=== PATIENT | female | born 1990 | race Caucasian/White ===

== ENCOUNTER 2018-09-10 12:39 | Emergency (ER) | payer OTHER ==
[~2018-09-10] VITALS: Wt 88.0 kg
[2018-09-10] MEDS ORDERED: OXYCODONE/ACETAMINOPHEN (5/325) TAB PO ONE (13:30)
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
[2018-09-10] MEDS ORDERED: SOD CHLORIDE 0.9% 1,000 ML IV STA (14:27)
[2018-09-10] MEDS ORDERED: SOD CHLORIDE 0.9% 100 ML ONE (15:05)
[2018-09-10] MEDS ORDERED: IOHEXOL 300MG/ML 150 ML BTL ONE (15:05)
[2018-09-10] MEDS ORDERED: IBUP-1542 PO (16:08)
[2018-09-10] MEDS ORDERED: HYDR-4011 PO (16:08)
[2018-09-10 16:26] VITALS: BP 113/64; PULSE 63; RESP 20
== END 2018-09-10 16:26 | disposition home or self-care (01) ==
LOC: FTE 12:39
DX: S39.91XA Unspecified injury of abdomen, initial encounter (principal); S49.92XA Unspecified injury of left shoulder and upper arm, initial encounter; V49.49XA Driver injured in collision with other motor vehicles in traffic accident, initial encounter
CPT/HCPCS: 73090; 73110; 74177; 80053; 81001; 81025; 85025; J7030; Q9967; Z7502; Z7610; 81003

== ENCOUNTER 2018-11-30 01:10 | Emergency (ER) | payer OTHER ==
[~2018-11-30] VITALS: Ht 167.6 cm; Wt 81.9 kg
[~2018-11-30 01:10] MED LIST: HYDR-4011 PO; IBUP-1542 PO; LORA1TAB PO; MECL12.574 PO; ONDA8TAB14 PO
[2018-11-30 01:15] VITALS: Ht 167.6 cm; Wt 81.9 kg
[2018-11-30] MEDS ORDERED: ONDANSETRON (ODT) 4 MG TAB ODT STA (02:32)
[2018-11-30] MEDS ORDERED: MECLIZINE 12.5 MG TAB PO ONE (03:00)
[2018-11-30 04:58] VITALS: BP 129/81; PULSE 60; RESP 18
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
== END 2018-11-30 04:59 | disposition home or self-care (01) ==
LOC: FTE 01:10
DX: F41.9 Anxiety disorder, unspecified (principal); R00.1 Bradycardia, unspecified; F17.210 Nicotine dependence, cigarettes, uncomplicated; R11.0 Nausea
CPT/HCPCS: 80053; 81025; 84443; 85025; 93005; Z7610; 36415